=== PATIENT | male | born 1975 | race American Indian/Alaskan Native ===

== ENCOUNTER 2022-01-18 11:44 | Emergency (ER) | payer OTHER ==
[~2022-01-18] VITALS: Ht 175.3 cm; Wt 90.7 kg
[~2022-01-18 11:44] MED LIST: CLON.1 PO; FISH1000 PO; GABA300 PO; METCAR500 PO; MORP20ER PO; MORP30 PO; MORP30ER PO; NORT25 PO; NORT75 PO; OXYC10ER PO; OXYC5 PO
[2022-01-18] MEDS ORDERED: OXYC5 PO (13:26)
== END 2022-01-18 14:04 | disposition home or self-care (01) ==
LOC: ER 11:44
DX: S82.852A Displaced trimalleolar fracture of left lower leg, initial encounter for closed fracture (principal); W10.9XXA Fall (on) (from) unspecified stairs and steps, initial encounter; I10 Essential (primary) hypertension
CPT/HCPCS: 36415; 73610; J1170; J2405; J2704; J7030